=== PATIENT | male | born 1950 | race Caucasian/White ===

== ENCOUNTER 2022-01-02 12:37 | Outpatient (CLI) | payer OTHER ==
[2022-01-02] MEDS ORDERED: COLLAGENASE 5 GM TUBE UD TP ONE (13:25)
== END 2022-01-02 23:59 | disposition home or self-care (01) ==
LOC: WOU 12:37
PROVIDERS: ATTEND Specialist
DX: S81.811A Laceration without foreign body, right lower leg, initial encounter (principal); S80.11XA Contusion of right lower leg, initial encounter; W19.XXXA Unspecified fall, initial encounter; Y93.89 Activity, other specified; Y92.89 Other specified places as the place of occurrence of the external cause; I10 Essential (primary) hypertension
CPT/HCPCS: G0463

== ENCOUNTER 2022-01-09 12:30 | Outpatient (CLI) | payer OTHER ==
[2022-01-09] MEDS ORDERED: LIDOCAINE SOLN 4% 50 ML BOTTLE ONE (12:47)
== END 2022-01-09 23:59 | disposition home or self-care (01) ==
LOC: WOU 12:30
PROVIDERS: ATTEND Specialist
DX: S81.811A Laceration without foreign body, right lower leg, initial encounter (principal); T79.2XXA Traumatic secondary and recurrent hemorrhage and seroma, initial encounter; W19.XXXA Unspecified fall, initial encounter; Y93.89 Activity, other specified; Y92.89 Other specified places as the place of occurrence of the external cause
CPT/HCPCS: 10140; 87070; 87075; A6209; A6407; J7040; 87186-TC

== ENCOUNTER 2022-01-16 12:10 | Outpatient (CLI) | payer OTHER | END 2022-01-16 23:59 | disposition home or self-care (01) | LOC: WOU 12:10 | PROVIDERS: ATTEND Specialist | DX: S81.811D Laceration without foreign body, right lower leg, subsequent encounter (principal); W19.XXXD Unspecified fall, subsequent encounter; I10 Essential (primary) hypertension | CPT/HCPCS: G0463; A6210; A6407 ==

== ENCOUNTER 2022-01-23 12:06 | Outpatient (CLI) | payer OTHER | END 2022-01-23 23:59 | disposition home or self-care (01) | LOC: WOU 12:06 | PROVIDERS: ATTEND Specialist | DX: S81.811D Laceration without foreign body, right lower leg, subsequent encounter (principal); W19.XXXD Unspecified fall, subsequent encounter; I10 Essential (primary) hypertension | CPT/HCPCS: 99214; A6210; A6407; G0463 ==

== ENCOUNTER 2022-01-30 12:10 | Outpatient (CLI) | payer OTHER | END 2022-01-30 23:59 | disposition home or self-care (01) | LOC: WOU 12:10 | PROVIDERS: ATTEND Specialist | DX: S81.811D Laceration without foreign body, right lower leg, subsequent encounter (principal); W19.XXXD Unspecified fall, subsequent encounter; I10 Essential (primary) hypertension | CPT/HCPCS: G0463 ==

== ENCOUNTER 2022-02-13 12:08 | Outpatient (CLI) | payer OTHER | END 2022-02-13 23:59 | disposition home or self-care (01) | LOC: WOU 12:08 | PROVIDERS: ATTEND Specialist | DX: S81.811A Laceration without foreign body, right lower leg, initial encounter (principal); W19.XXXA Unspecified fall, initial encounter; Y93.89 Activity, other specified | CPT/HCPCS: 17250 ==

== ENCOUNTER 2022-02-27 12:34 | Outpatient (CLI) | payer OTHER | END 2022-02-27 23:59 | disposition home or self-care (01) | LOC: WOU 12:34 | PROVIDERS: ATTEND Specialist | DX: S81.811A Laceration without foreign body, right lower leg, initial encounter (principal); W19.XXXA Unspecified fall, initial encounter; Y93.89 Activity, other specified; Y92.89 Other specified places as the place of occurrence of the external cause; I10 Essential (primary) hypertension; C91.10 Chronic lymphocytic leukemia of B-cell type not having achieved remission | CPT/HCPCS: 17250 ==

== ENCOUNTER 2022-03-13 12:10 | Outpatient (CLI) | payer OTHER ==
[2022-03-13] MEDS ORDERED: SILVER NITRATE APPLICATOR 1 EA BOX ONE (12:39)
== END 2022-03-13 23:59 | disposition home or self-care (01) ==
LOC: WOU 12:10
PROVIDERS: ATTEND Specialist
DX: T79.2XXA Traumatic secondary and recurrent hemorrhage and seroma, initial encounter (principal); W01.0XXA Fall on same level from slipping, tripping and stumbling without subsequent striking against object, initial encounter; Y92.89 Other specified places as the place of occurrence of the external cause; C91.10 Chronic lymphocytic leukemia of B-cell type not having achieved remission; I10 Essential (primary) hypertension
CPT/HCPCS: 17250

== ENCOUNTER 2022-03-27 12:14 | Outpatient (CLI) | payer OTHER ==
[2022-03-27] MEDS ORDERED: SILVER NITRATE APPLICATOR 1 EA BOX ONE (12:41)
== END 2022-03-27 23:59 | disposition home health service (06) ==
LOC: WOU 12:14
PROVIDERS: ATTEND Specialist
DX: S81.811A Laceration without foreign body, right lower leg, initial encounter (principal); W19.XXXA Unspecified fall, initial encounter; Y93.89 Activity, other specified; Y99.8 Other external cause status; C91.10 Chronic lymphocytic leukemia of B-cell type not having achieved remission; I10 Essential (primary) hypertension
CPT/HCPCS: 17250; A6209

== ENCOUNTER 2022-04-17 12:10 | Outpatient (CLI) | payer OTHER | END 2022-04-17 23:59 | disposition home health service (06) | LOC: WOU 12:10 | PROVIDERS: ATTEND Specialist | DX: S81.811A Laceration without foreign body, right lower leg, initial encounter (principal); W19.XXXA Unspecified fall, initial encounter; Y92.89 Other specified places as the place of occurrence of the external cause; C91.11 Chronic lymphocytic leukemia of B-cell type in remission; I10 Essential (primary) hypertension | CPT/HCPCS: 11042; 87070-TC; 87075-TC; 87186-TC ==

== ENCOUNTER 2022-04-24 12:36 | Outpatient (CLI) | payer OTHER ==
[2022-04-24] MEDS ORDERED: LIDOCAINE SOLN 4% 50 ML BOTTLE ONE (12:41)
== END 2022-04-24 23:59 | disposition home health service (06) ==
LOC: WOU 12:36
PROVIDERS: ATTEND Podiatrist Foot & Ankle Surgery
DX: S81.811A Laceration without foreign body, right lower leg, initial encounter (principal); W19.XXXA Unspecified fall, initial encounter; Y92.89 Other specified places as the place of occurrence of the external cause; C91.11 Chronic lymphocytic leukemia of B-cell type in remission; I10 Essential (primary) hypertension
CPT/HCPCS: 11042; 87070-TC; 87075-TC; 87186-TC; G0463

== ENCOUNTER 2022-05-01 12:45 | Outpatient (CLI) | payer OTHER ==
[2022-05-01] MEDS ORDERED: GENTAMICIN 0.1% CREAM 15 GM TUBE ONE (13:39)
== END 2022-05-01 23:59 | disposition home health service (06) ==
LOC: WOU 12:45
PROVIDERS: ATTEND Podiatrist Foot & Ankle Surgery
DX: S81.811A Laceration without foreign body, right lower leg, initial encounter (principal); W19.XXXA Unspecified fall, initial encounter; Y92.89 Other specified places as the place of occurrence of the external cause; L03.115 Cellulitis of right lower limb; M77.31 Calcaneal spur, right foot; M72.2 Plantar fascial fibromatosis; C91.11 Chronic lymphocytic leukemia of B-cell type in remission; I10 Essential (primary) hypertension
CPT/HCPCS: 11042; A6207

== ENCOUNTER 2022-05-08 12:18 | Outpatient (CLI) | payer OTHER ==
[2022-05-08] MEDS ORDERED: GENTAMICIN 0.1% CREAM 15 GM TUBE ONE (13:25)
== END 2022-05-08 23:59 | disposition home health service (06) ==
LOC: WOU 12:18
PROVIDERS: ATTEND Podiatrist Foot & Ankle Surgery
DX: S81.811A Laceration without foreign body, right lower leg, initial encounter (principal); W19.XXXA Unspecified fall, initial encounter; Y92.89 Other specified places as the place of occurrence of the external cause; M77.31 Calcaneal spur, right foot; M72.2 Plantar fascial fibromatosis; C91.11 Chronic lymphocytic leukemia of B-cell type in remission; L03.115 Cellulitis of right lower limb; B96.5 Pseudomonas (aeruginosa) (mallei) (pseudomallei) as the cause of diseases classified elsewhere; B96.1 Klebsiella pneumoniae [K. pneumoniae] as the cause of diseases classified elsewhere; B95.61 Methicillin susceptible Staphylococcus aureus infection as the cause of diseases classified elsewhere; I10 Essential (primary) hypertension
CPT/HCPCS: 11042

== ENCOUNTER 2022-05-15 12:30 | Outpatient (CLI) | payer OTHER ==
[2022-05-15] MEDS ORDERED: GENTAMICIN 0.1% CREAM 15 GM TUBE ONE (12:59)
== END 2022-05-15 23:59 | disposition home health service (06) ==
LOC: WOU 12:30
PROVIDERS: ATTEND Podiatrist Foot & Ankle Surgery
DX: S81.811A Laceration without foreign body, right lower leg, initial encounter (principal); W19.XXXA Unspecified fall, initial encounter; Y92.89 Other specified places as the place of occurrence of the external cause; C91.11 Chronic lymphocytic leukemia of B-cell type in remission; M72.2 Plantar fascial fibromatosis; M77.31 Calcaneal spur, right foot
CPT/HCPCS: 11042

== ENCOUNTER 2022-05-22 12:08 | Outpatient (CLI) | payer OTHER | END 2022-05-22 23:59 | disposition home health service (06) | LOC: WOU 12:08 | PROVIDERS: ATTEND Podiatrist Foot & Ankle Surgery | DX: S81.811A Laceration without foreign body, right lower leg, initial encounter (principal); W19.XXXA Unspecified fall, initial encounter; Y92.89 Other specified places as the place of occurrence of the external cause; C91.11 Chronic lymphocytic leukemia of B-cell type in remission; M72.2 Plantar fascial fibromatosis; M77.31 Calcaneal spur, right foot | CPT/HCPCS: 11042 ==

== ENCOUNTER 2022-05-29 12:15 | Outpatient (CLI) | payer OTHER ==
[2022-05-29] MEDS ORDERED: LIDOCAINE SOLN 4% 50 ML BOTTLE ONE (12:16)
[2022-05-29] MEDS ORDERED: GENTAMICIN 0.1% CREAM 15 GM TUBE ONE (13:14)
== END 2022-05-29 23:59 | disposition home health service (06) ==
LOC: WOU 12:15
PROVIDERS: ATTEND Podiatrist Foot & Ankle Surgery
DX: S81.811A Laceration without foreign body, right lower leg, initial encounter (principal); W19.XXXA Unspecified fall, initial encounter; Y92.89 Other specified places as the place of occurrence of the external cause; L03.115 Cellulitis of right lower limb; C91.11 Chronic lymphocytic leukemia of B-cell type in remission; M72.2 Plantar fascial fibromatosis; M77.31 Calcaneal spur, right foot; I10 Essential (primary) hypertension
CPT/HCPCS: 11042

== ENCOUNTER 2022-06-12 13:11 | Outpatient (CLI) | payer OTHER ==
[2022-06-12] MEDS ORDERED: GENTAMICIN 0.1% CREAM 15 GM TUBE ONE (13:18)
== END 2022-06-12 23:59 | disposition home health service (06) ==
LOC: WOU 13:11
PROVIDERS: ATTEND Podiatrist Foot & Ankle Surgery
DX: S81.811A Laceration without foreign body, right lower leg, initial encounter (principal); W19.XXXA Unspecified fall, initial encounter; Y92.89 Other specified places as the place of occurrence of the external cause; C91.11 Chronic lymphocytic leukemia of B-cell type in remission; M72.2 Plantar fascial fibromatosis; M77.31 Calcaneal spur, right foot; I10 Essential (primary) hypertension
CPT/HCPCS: 11042